=== PATIENT | female | born 1970 | race Caucasian/White ===

== ENCOUNTER 2018-09-19 06:57 | Day surgery (SDC) | payer BC ==
--- NOTE | 2018-09-16 13:25 | HP ---
Admitting History and Physical - Primary Care Physician PCP: Sumit Schaefer - Admission Chief Complaint: Left breast mass History of Present Illness: Patient is a 47 yo female with a normal mammo and US 12/2017 who was noted to have a 1 cm mass in the right breast with a separate area of enhancement noted in the left 6 o clock position on MRI. US guided core bx of the right 8 oclock lesion was c/w benign tissue. US guided core of the left 6 oclock was c/w a radial scar and PASH. 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 Patient has opted to undergo a left breast exc bx with NL. History Source: Patient Limitations to Obtaining History: No Limitations - Past Medical History Cardiovascular: Yes: Other (Low BP) Musculoskeletal: Yes: Chronic low back pain, Other (and neck pain) - Smoking History Smoking history: Never smoked Have you smoked in the past 12 months: No - Alcohol/Substance Use Hx Alcohol Use: Yes (social) Home Medications - Allergies Allergies/Adverse Reactions: Allergies Allergy/AdvReac Type Severity Reaction Status Date / Time Iodine and Iodide Containing Allergy Verified 08/28/18 16:12 Produc Family Disease History - Family Disease History Family Disease History: CA: Grandparent (mat GM breast ca 50 // Paternal GF CRC 72 ), Mother (Breast ca 53 currently 73) Other Family History: maternal cousin-breast cancer at 50 Review of Systems - Review of Systems Constitutional: reports: No Symptoms Musculoskeletal: reports: Back Pain, Other (neck pain) Physical Examination Constitutional: Yes: Well Nourished, Calm Breast(s): Yes: Other (Ptotic C-cup breasts and ecchymosis noted at site of left breast bx. Left postbiopsy changes in the 6 oclock position. No suspicious masses or adenopathy noted bilaterally.) Problem List - Problems (1) Left breast mass Code(s): N63.20 - UNSPECIFIED LUMP IN THE LEFT BREAST, UNSPECIFIED QUADRANT Assessment/Plan Left breast excisional bx with NL.
[2018-09-16 17:08] VITALS: BMI 21.7
[2018-09-19] MEDS ORDERED: BUPIVACAINE HCL/PF 2.5 MG/ML - 30 ML VIAL IJ ONE (09:21)
[2018-09-19] MEDS ORDERED: LIDOCAINE HCL 1% PRESERVATIVE FREE - 30ML VIAL ONE (09:21)
[2018-09-19] MEDS ORDERED: LIDOCAINE 1% P/F 10 MG/ML VIAL ONE (09:52)
[2018-09-19] MEDS ORDERED: MIDAZOLAM HCL 2 MG/2 ML SINGLE DOSE VIAL ONE (09:52)
[2018-09-19] MEDS ORDERED: LIDOCAINE HCL/PF 2% SDV 5ML VIAL ONE (10:09)
[2018-09-19] MEDS ORDERED: PROPOFOL 20 ML ONE ×2 (10:09)
[2018-09-19] MEDS ORDERED: LIDOCAINE 1% P/F 10 MG/ML VIAL INF ONE ×2 (10:24)
[2018-09-19] MEDS ORDERED: BUPIVACAINE HCL/PF 0.25% (2.5MG/ML) 10 ML VIAL IJ ONE (10:50)
[2018-09-19] MEDS ORDERED: PROMETHAZINE HCL 25 MG/1 ML VIAL IVPUSH PRN (11:09)
[2018-09-19] MEDS ORDERED: ONDANSETRON 4 MG/2 ML VIAL IVPUSH PRN (11:09)
[2018-09-19] MEDS ORDERED: oxyCODONE HCL 5 MG TABLET PO PRN (11:09)
[2018-09-19 12:06] VITALS: TEMP 97.6
[2018-09-19 13:17] VITALS: BP 130/69; PULSE 60
--- NOTE | 2018-09-19 19:10 | OP ---
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 PROCEDURE: Left breast excisional biopsy with mammographic needle localization. ANESTHESIA: Local with IV sedation. SURGEON: Daniel Schaefer MD RESEARCH FOOD TECHNOLOGIST: JESSICA Bernabe COMPLICATIONS: None. Briefly, the patient is a 47-year-old, G4, P2, premenopausal white female. She has a history with her mother had breast cancer at age 52, as well as a maternal grandmother who had breast cancer in her 50s, a maternal cousin had breast cancer in her 50s. The patient was getting routine screening mammography and MRIs and was found to have a left breast 6 o'clock area of enhancement on MRI in July 2018. 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 Slide review confirmed the radial scar, and she underwent genetic testing which was negative. She was advised on undergoing an excision of this region of radial scar and also was given the option of close surveillance. She decided to have this excised and was brought in for the procedure on September 19, 2018. The patient was brought in the morning of the surgery and underwent a needle localization of the heart-shaped clip in the left breast 6 o'clock region. The other MRI clip was in close proximity to the localization. She was then brought to the holding area. In the holding area, site verification was made, and informed consent was obtained. She was brought into the operating room and laid on the OR table in a supine position. Venodynes were placed on the lower extremities. She did not receive antibiotics given the small nature of the excision. She underwent IV sedation. The left breast was sterilely prepped and draped in usual fashion with the wire prepped in the field. Timeout was performed. Next, 1% lidocaine was given in the left breast inframammary fold just underneath the wire localization site. Dissection was undertaken around the needle localization, and the tissue was completely removed from around the wire with the wire intact in the middle of the specimen. The specimen was completely excised and oriented with a long lateral/short superior suture. Specimen radiographs showed removal of both clips in question. Hemostasis was achieved. The breast parenchyma was then reapproximated using 2-0 plain suture. The skin was closed using interrupted 3-0 deep dermal Vicryl suture and a running subcuticular 4-0 Biosyn suture. Dermabond was placed over the wound. The patient tolerated the procedure well without difficulty, was awake and alert at the end of the procedure. Sterile dressing was applied. She was brought to the postanesthesia care unit in stable condition. All sponge and needle counts were correct at the end of the case. ESTIMATED BLOOD LOSS: Minimal. The patient will be discharged home the same day and will follow up in the office in 1 week for formal wound pathology check. DANIEL SCHAEFER M.D. [id number]
--- NOTE | 2018-09-23 12:50 | PATH ---
Surgical Pathology Report Patient Name: FRANKLIN DUCKWORTH Med. Rec. #: [id number] /Age/Gender: 1970 (Age: 47) / F Account: [id number] Location: [facility] Taken: 09/19/2018 Received: 09/19/2018 Reported: 09/23/2018 Physicians: Sumit Schaefer M.D. 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 PRIOR BIOPSY SITE CHANGES ARE PRESENT. Note: See also slide review case [id number] (outside case #: [id number] & [id number]). Electronically Signed Lydia Linares M.D. Gross Description Received in formalin labeled "left breast biopsy, needle localization," is a 4.7 x 3.7 x 2.3 cm portion of fibroadipose tissue with a needle localization wire present. There is a short suture marking the superior aspect and a long suture marking the lateral aspect of the specimen, per the surgeon. There is no skin present. The specimen is inked as follows: Superior and lateral blue; medial yellow; inferior green; anterior right; deep black. The specimen is serially sectioned from medial to lateral. Sectioning reveals a 4.0 x 1.4 x 1.0 cm hope, ill-defined focus of firm fibrous tissue extending to the anterior and deep margins. There is a focal palm metallic biopsy clip identified. [employer] sections including the majority of the fibrous tissue are submitted in 11 cassettes as follows: [id number] and sequentially submitted firm fibrous tissue from medial to lateral (each with inferior, anterior and deep margins; biopsy clip in cassette 3); 9-superior margin; 10-medial margin; 11-lateral margin. Time to formalin fixation: Not given Total formalin fixation time: Approximately 27 hours 09/20/201809/20/2018
== END 2018-09-19 13:15 | disposition home or self-care (01) ==
LOC: FASU 06:57
PROVIDERS: ATTEND Surgery Surgical Oncology
PROC: 0HBU0ZX Excision of Left Breast, Open Approach, Diagnostic (ICD-10-PCS; principal; 2018-09-19 10:25)
DX: N60.82 Other benign mammary dysplasias of left breast (principal); N60.12 Diffuse cystic mastopathy of left breast; N63.20 Unspecified lump in the left breast, unspecified quadrant; N64.89 Other specified disorders of breast
CPT/HCPCS: 19281; 84703; 88307-TC; 94760